=== PATIENT | female | born 1985 | race Two or more races ===

== ENCOUNTER 2023-06-09 10:08 | Day surgery (SDC) | payer OTHER ==
[~2023-06-09 10:08] MED LIST: MULTIPLE VITAM1 EAC2 PO; ZESTRIL10 M1 PO
== END 2023-06-09 22:05 | disposition home or self-care (01) ==
LOC: CIR.AMB 10:08
PROVIDERS: ATTEND Obstetrics & Gynecology
DX: N72 Inflammatory disease of cervix uteri (principal); B97.7 Papillomavirus as the cause of diseases classified elsewhere; I10 Essential (primary) hypertension